=== PATIENT | male | born 1975 | race Hispanic/Latino ===

== ENCOUNTER 2017-05-21 02:25 | Emergency (ER) | payer BC, OTHER ==
[2017-05-21 02:25] VITALS: BMI 32.5
[2017-05-21 03:04] LABS: BASO # 0.1 K/uL (0.0-0.2); BASO % 0.5 % (0.0-2.0); EOS % 0.3 % (0.0-4.0); HEMOGLOBIN 13.7 g/dL (12.0-18.0); LYMPH # 1.1 K/uL (1.0-4.3); LYMPH % 8.2 % (20.0-40.0); MEAN CORPUSCULAR HEMOGLOBIN 31.5 pg (27.0-31.0); MEAN PLATELET VOLUME 8.7 fL (7.2-11.7); MONO # 0.7 K/uL (0.0-0.8); MONO % 5.3 % (0.0-10.0); NEUT # 11.1 K/uL (1.8-7.0); NEUT % 85.7 % (50.0-75.0); PLATELET COUNT 263 K/uL (130-400); RBC 4.35 Mil/uL (4.40-5.90); RED CELL DISTRIBUTION WIDTH 12.8 % (11.5-14.5)
[2017-05-21 03:15] LABS: ALB/GLOB RATIO 1.3 (1.0-2.1); ALBUMIN 4.2 g/dL (3.5-5.0); ALT/SGPT 61 U/L (21-72); AST/SGOT 33 U/L (17-59); BLOOD UREA NITROGEN 9 mg/dL (9-20); CALCIUM 7.8 mg/dl (8.6-10.4); GFR AFRICAN-AMERICAN > 60; GFR NON-AFRICAN AMERICAN > 60; LIPASE 84 U/L (23-300)
[2017-05-21] MEDS ORDERED: Sodium Chloride 0.9% 500 ML IV ONE (03:28)
[2017-05-21] MEDS ORDERED: Sodium Chloride 0.9% 1,000 ML ONE (03:33)
[2017-05-21 03:49] LABS: LYMPHOCYTE 10 % (20-40); MONOCYTE 6 % (0-10); NEUTROPHIL 84 % (50-75); PLATELET ESTIMATE NORMAL (NORMAL); TOTAL CELLS COUNTED 100
[2017-05-21 03:58] LABS: GRANULAR CAST 2 /lpf (0-1); URINE BACTERIA RARE (<OCC); URINE BILIRUBIN NEGATIVE (NEGATIVE); URINE BLOOD 3+ (NEGATIVE); URINE CALCIUM OXALATE CRYSTALS FEW /hpf (<OCC); URINE CLARITY Hazy (Clear); URINE COLOR Amber (YELLOW); URINE GLUCOSE (UA) NORMAL (Normal); URINE LEUKOCYTE ESTERASE NEG Leu/uL (Negative); URINE PROTEIN 2+ mg/dL (NEGATIVE); URINE UROBILINOGEN NORMAL mg/dL (0.2-1.0)
--- NOTE | 2017-05-21 04:44 | C.PDOC ---
History Of Present Illness 41 year old male presents to the ER with a complaint of generalized abdominal pain for the past day, associated with nausea that has resolved. Patient states that for the past 5 days he has been on a high carb vegetarian diet and reports changes in his bowel movements. Denies vomiting, fever, or urinary symptoms. Time Seen by Provider: 05/21/17 03:15 Chief Complaint (Nursing): Abdominal Pain History Per: Patient History/Exam Limitations: no limitations Onset/Duration Of Symptoms: Days Current Symptoms Are (Timing): Still Present Location Of Pain/Discomfort: Diffuse Radiation Of Pain To:: None Quality Of Discomfort: Unable To Describe Associated Symptoms: denies: Fever, Nausea, Urinary Symptoms Exacerbating Factors: None Alleviating Factors: None Recent travel outside of the [place]: No Past Medical History Reviewed: Historical Data, Nursing Documentation, Vital Signs Vital Signs: Last Vital Signs Temp 97.8 F 05/21/17 04:24 Pulse 78 05/21/17 04:24 Resp 22 05/21/17 04:24 BP 124/77 05/21/17 04:24 Pulse Ox 99 05/21/17 04:51 - Medical History PMH: Asthma, Pneumonia Family History: States: Unknown Family Hx - Social History Hx Tobacco Use: No Hx Alcohol Use: Yes (social) Hx Substance Use: No - Immunization History Hx Tetanus Toxoid Vaccination: No Hx Influenza Vaccination: No Hx Pneumococcal Vaccination: No Review Of Systems Constitutional: Negative for: Fever Cardiovascular: Negative for: Chest Pain, Palpitations Respiratory: Negative for: Shortness of Breath Gastrointestinal: Positive for: Abdominal Pain. Negative for: Vomiting Genitourinary: Negative for: Dysuria, Hematuria Physical Exam - Physical Exam Appears: Non-toxic Skin: Normal Color, Warm, Dry Head: Atraumatic, Normacephalic Eye(s): bilateral: Normal Inspection Oral Mucosa: Moist Chest: Symmetrical, No Tenderness Cardiovascular: Rhythm Regular Respiratory: Normal Breath Sounds, No Rales, No Rhonchi, No Wheezing Gastrointestinal/Abdominal: Soft, Tenderness (Mild diffuse), Distention, No Guarding, No Rebound Back: No CVA Tenderness Neurological/Psych: Oriented x3, Normal Speech ED Course And Treatment - Laboratory Results Result Diagrams: 05/21/17 03:01 05/21/17 03:01 O2 Sat by Pulse Oximetry: 99 (Room air) Pulse Ox Interpretation: Normal - Other Rad Obstructive Series x-ray X-Ray: Interpreted by Me, Viewed By Me Interpretation: Moderate stools. Progress Note: Obstructive series x-ray ordered, results showed moderate stools. Pepcid, toradol IV, IV fluids, and lactulose administered. UA: 3+ blood and RBC 111, abd/ pelvis CT ordered. On reevaluation, patient reports improvement of symptoms after medications, he is resting comfortably in the ER in no acute distress, vitals are stable. Test results d/w pt. Pt will be discharged home with instructions to follow up with PMD or return if symptoms worsen. Pt understands and agrees with plan Reevaluation Time: 06:50 Reassessment Condition: Improved Disposition Counseled Patient/Family Regarding: Studies Performed, Diagnosis, Need For Followup, Rx Given - Disposition Referrals: [facility] [Outside] Arturo Pinedo MD [Staff Provider] - Disposition Time: 06:50 Condition: STABLE Additional Instructions: Increase PO fluids High fiber diet Follow up with PMD or clinic May follow up as well with Urologist- Call Dr Pinedo office for appointment Return to ER if worse Prescriptions: Ibuprofen [Motrin] 600 mg PO Q6H #20 tab Polyethylene Glycol 3350 [Miralax] 17 gm PO DAILY #1 bottle Instructions: Kidney Stones (DC), High Fiber Diet Forms: [facility] (Cuban) - Clinical Impression Clinical Impression: Constipation, Nephrolithiasis - PA / CORK TILE FLOOR LAYER / Resident Statement MD/DO has reviewed & agrees with the documentation as recorded. - Scribe Statement The provider has reviewed the documentation as recorded by the Scribmoriah Basurto All medical record entries made by the Abimbolaibmoriah were at my direction and personally dictated by me. I have reviewed the chart and agree that the record accurately reflects my personal performance of the history, physical exam, medical decision making, and the department course for this patient. I have also personally directed, reviewed, and agree with the discharge instructions and disposition.
--- NOTE | 2017-05-21 06:13 | CT ---
EXAM: CT Abdomen and Pelvis Without Intravenous Contrast CLINICAL HISTORY: 41 years old, male; Pain; Abdominal pain; Additional info: Abd pain, hematuria TECHNIQUE: Axial computed tomography images of the abdomen and pelvis without intravenous contrast. All CT scans at this facility use one or more dose reduction techniques, viz.: automated exposure control; ma/kV adjustment per patient size (including targeted exams where dose is matched to indication; i.e. head); or iterative reconstruction technique. Coronal and sagittal reformatted images were created and reviewed. COMPARISON: No relevant prior studies available. FINDINGS: Lower thorax: Lung base linear atelectasis or scarring. ABDOMEN: Liver: There is a diffuse decrease in hepatic parenchymal density, consistent with fatty infiltration. Gallbladder and bile ducts: Unremarkable. No calcified stones. No ductal dilation. Pancreas: Unremarkable. No ductal dilation. Spleen: Unremarkable. No splenomegaly. Adrenals: Unremarkable. No mass. Kidneys and ureters: Mild left hydronephrosis and hydroureter secondary to a 2 mm stone in the distal left ureter/uterovesical junction. The right kidney is normal. Stomach and bowel: Unremarkable. No obstruction. No mucosal thickening. Appendix: A normal appendix is identified. PELVIS: Bladder: The bladder is decompressed. No stones. Reproductive: Unremarkable as visualized. ABDOMEN and PELVIS: Intraperitoneal space: Unremarkable. No free air. No significant fluid collection. Bones/joints: No acute fracture. No dislocation. Soft tissues: Unremarkable. Vasculature: Unremarkable. No abdominal aortic aneurysm. Lymph nodes: Unremarkable. No enlarged lymph nodes. IMPRESSION: Mild left hydroureteronephrosis secondary to a 2 mm stone in the distal left ureter/uterovesical junction. Fatty liver.
[2017-05-21 07:14] VITALS: BP 145/78; PULSE 80; RESP 20; TEMP 98; O2SAT 97
--- NOTE | 2017-05-21 08:45 | RAD ---
PROCEDURE: Radiographs of the chest and abdomen (obstructive series) HISTORY: abd pain COMPARISON: Exam is read in the context with the same-day CT having been already performed. TECHNIQUE: AP radiograph of the chest, with upright and supine radiographs of the abdomen. FINDINGS: CHEST: Lungs: Clear. Cardiovascular: Normal size heart. No pulmonary vascular congestion. Pleura: No pleural fluid. No pneumothorax. Other findings: None. ABDOMEN AND PELVIS: Bowel: Stool retention. bowel gas pattern. No evidence of mechanical obstruction. Free air: None. Bones: Transitional elements at these lumbosacral junction inferred. Probably near complete closure of the posterior elements of" S1" . Bilateral sacroiliac minimal iliac sided sclerosis. Bilateral senescent changes of each hip -morphology here compatible with a femoral acetabular impingement presentation. Correlate clinically Other findings: The most conspicuous left hemipelvic calcification co registers to a left hemipelvic phlebolith. A fainter smaller approximately 1 mm calcification inferior and rightward of this larger left hemipelvic calcification borders the margin of the inferior sacrum on this abdomen exam and is most compatible with the small distal left ureterovesical junctional calculus IMPRESSION: 1 mm inferior left hemipelvic calcification compatible with the CT demonstrated distal left ureteral/ left ureteral vesicular calculus. Superior and leftward of it is the larger more conspicuous left hemipelvic phlebolith. Stool retention. No bowel obstruction. No free air Pulmonary infiltrate
--- NOTE | 2017-05-24 17:30 | CARD ---
APPROVED REPORT EKG Measurement Heart [id number] MD [id number] <Conclusion> Normal sinus rhythm Incomplete right bundle branch block Borderline ECG
== END 2017-05-21 07:07 | disposition home or self-care (01) ==
LOC: C.ER 02:25
DX: K59.00 Constipation, unspecified (principal); N13.2 Hydronephrosis with renal and ureteral calculous obstruction
CPT/HCPCS: 74022; 74176; 80053; 81001; 83690; 85025; 93005; 96361; 96374; 96375; 99285; J1885; J7040